=== PATIENT | male | born 1975 | race Caucasian/White ===

== ENCOUNTER 2016-10-27 08:59 | Emergency (ER) | payer OTHER, BC ==
[~2016-10-27] VITALS: Ht 177.8 cm; Wt 91.5 kg
[2016-10-27 09:02] VITALS: TEMP 36.6; Ht 177.8 cm; Wt 91.5 kg
[2016-10-27] MEDS ORDERED: HYDROCODONE/ACETAMOPHEN 5/325MG TAB PO STA (09:30)
[2016-10-27] MEDS ORDERED: IBUPROFEN 800 MG TAB PO STA (09:30)
[2016-10-27] MEDS ORDERED: LIDODERM (LIDOCAINE) PATCH 5% TD STA (09:33)
[2016-10-27] MEDS ORDERED: VALA1TAB2 PO (09:34)
[2016-10-27] MEDS ORDERED: OXYC-57 PO (09:34)
--- NOTE | 2016-10-27 09:54 | EMERGENCY ROOM VISIT NOTE ---
History Report prepared by Emmett: Jigna Navarrete Under the Supervision of: Dr. Diego Fuentes M.D. First contact with patient: 09:23 Chief Complaint: RIB PAIN Stated Complaint: RIB PAIN History of Present Illness The patient is a 41 year old male who presents to the Emergency Room with complaints of worsening right flank pain that started 3 days ago. The patient states that he played baseball 4 days ago for the first time in 10 years. He states that he was pitching and hitting. The patient felt sore 3-4 days ago but 2 days ago the pain worsened. He states that he was unable to bend down without getting winded secondary to the pain. The patient is also experiencing pain with breathing and coughing. He went to the chiropractor 2 days ago and the chiropractor told him that his hips weren't aligned and it sounded like he had pulled muscles. The patient states that he developed a rash this morning that was on the right side of his abdomen and on the right side of his back. He tried to go to work but he states that is was uncomfortable to sit down. The patient had chicken pox as a kid. Source of History: patient Onset: 3 days ago Position: other (right flank) Quality: other (right flank pain) Timing: worsening Associated Symptoms: + rash Review of Systems See HPI for pertinent positives & negatives. A total of 10 systems reviewed and were otherwise negative. Past Medical & Surgical Medical Problems: (1) Carpal tunnel syndrome (2) right hand surgery (3) Stomach problems Family History Hypertension Social History Smoking Status: Former Smoker Marital Status: Housing Status: lives with significant other Occupation Status: employed Current/Historical Medications Scheduled Valacyclovir Hcl (Valtrex), 1,000 MG PO TID Scheduled PRN Oxycodone/Acetaminophen 5MG/325MG (Percocet 5MG/325MG), 1-2 TAB PO Q4H PRN for Pain Allergies Coded Allergies: No Known Allergies (Unverified , 12/10/13) Physical Exam Vital Signs Date Time Temp Pulse Resp B/P (MAP) Pulse Ox O2 Delivery O2 Flow Rate FiO2 10/27/16 10:00 70 18 123/86 98 10/27/16 09:02 36.6 70 18 123/86 98 Room Air Physical Exam GENERAL: Patient is a healthy-appearing well-nourished male HEAD: Normocephalic atraumatic EYES: Ocular movements intact pupils equal and react to light OROPHARYNX mucous membranes are moist no exudates present no erythema or edema present NECK: Supple no nuchal rigidity CHEST: Good equal expansion LUNGS: Clear and equal to auscultation CARDIAC: Normal S1 and S2 ABDOMEN: Soft nontender no guarding BACK: No CVA tenderness EXTREMITIES: No pain upon palpation normal muscle strength in all groups no clubbing cyanosis or edema SKIN: Blister-like rash that wraps around the L3 dermatome. NEURO: Patient is following commands and answering questions appropriately. Alert and oriented x3 Cranial Nerves 2-12 grossly intact Medical Decision & Procedures Medications Administered Medications (Trade) Dose Ordered Sig/Peri Route Start Time Stop Time Status Last Admin Dose Admin Valacyclovir HCl (Valtrex Tab) 1,000 mg NOW STAT PO 10/27/16 09:30 10/27/16 09:33 DC 10/27/16 09:37 1,000 MG Ibuprofen (Motrin Tab) 800 mg NOW STAT PO 10/27/16 09:30 10/27/16 09:33 DC 10/27/16 09:37 800 MG Acetaminophen/ Hydrocodone Bitart (Clark 5/325 Tab) 2 tab NOW STAT PO 10/27/16 09:30 10/27/16 09:33 DC 10/27/16 09:38 2 TAB Lidocaine (Lidoderm Patch 5%) 1 patch NOW STAT TD 10/27/16 09:33 10/27/16 09:34 DC 10/27/16 10:00 1 PATCH ED Course 0924: Past medical records reviewed. The patient was evaluated in room B4. A complete history and physical examination was performed. 0930: Ordered Hydrocodone Bitart/Acetaminophen 2 tab PO, Ibuprofen 800 mg PO, Valtrex Tab 1000 mg PO 0933: Ordered Lidocaine 1 patch TD 0936: After examination, I discussed results and treatment plan with the patient. He verbalizes agreement and understanding. The patient is ready for discharge. Medical Decision Differential diagnosis: Etiologies such as contact dermatitis, viral exanthem, urticaria, allergic reaction, Patricia-Tenzin syndrome, toxic epidermal necrolysis, erythema multiforme, cellulitis, scabies, HSV, varicella, zoster, eczema, staph scalded skin syndrome, fungal infection, as well as others were entertained. This is a 41-year-old male who presents emergency Department with a blisterlike rash in the pattern of the L1 dermatome. The patient is complaining of pain with just the slightest touch of the skin to this area. Based on this physical exam as well as story I do believe that the patient is suffering from herpes zoster. For this reason he was started on Valtrex as well as pain medication. I encouraged follow-up with patient's primary care physician. Patient was in agreement with the treatment plan. Impression Primary Impression: Zoster Scribe Attestation The scribe's documentation has been prepared under my direction and personally reviewed by me in its entirety. I confirm that the note above accurately reflects all work, treatment, procedures, and medical decision making performed by me. Departure Information Dispostion Home / Self-Care Prescriptions Oxycodone/Acetaminophen 5MG/325MG (PERCOCET 5MG/325MG) Tab 1-2 TAB PO Q4H Y for Pain, #14 TAB Prov: Diego Fuentes MD 10/27/16 Valacyclovir Hcl (VALTREX) 1 Gm Tab 1000 MG PO TID, #21 TAB Prov: Diego Fuentes MD 10/27/16 Referrals (PCP) Forms HOME CARE DOCUMENTATION FORM, IMPORTANT VISIT INFORMATION, WORK / SCHOOL INSTRUCTIONS Patient Instructions ED Jin, [facility] Additional Instructions Remove Lidoderm patch in 12 hours You received narcotic or benzodiazepene medication while in the emergency room today. Do not drive, operate heavy machinery, or drink alcohol under the influence of this medication. Take 600 mg Ibuprofen every 6 hours Take Percocet for breakthrough pain You have been examined and treated today on an emergency basis only. This is not a substitute for, or an effort to provide, complete comprehensive medical care. It is impossible to recognize and treat all injuries or illnesses in a single emergency department visit. It is therefore important that you follow up closely with Dr Avalos. Call as soon as possible for an appointment. Thank you for your time and consideration. I look forward to speaking with you again soon. Please don't hesitate to call us if you have any questions. Problem Qualifiers Primary Impression: Zoster Herpes zoster complications: without complications Qualified Codes: B02.9 - Zoster without complications
[2016-10-27 10:00] VITALS: BP 123/86; PULSE 70; O2SAT 98
== END 2016-10-27 10:03 | disposition home or self-care (01) ==
LOC: C.EDB 09:01
DX: B02.9 Zoster without complications (principal); Z87.891 Personal history of nicotine dependence; Z82.49 Family history of ischemic heart disease and other diseases of the circulatory system